=== PATIENT | female | born 1995 | race Caucasian/White ===

== ENCOUNTER 2020-09-26 10:43 | Outpatient (CLI) | payer OTHER, SELFPAY ==
--- NOTE | 2020-09-26 11:17 | ECG_ITS ---
Measurements Intervals [place] Rate: 59 P: 69 MA: 177 QRS: 57 QRSD: 82 T: 36 QT: 379 QTc: 376 Interpretive Statements SINUS BRADYCARDIA WITH SINUS ARRHYTHMIA POSSIBLE LEFT ATRIAL ENLARGEMENT INCOMPLETE RIGHT BUNDLE BRANCH BLOCK BORDERLINE ECG Electronically Signed On 09-26-2020 11:51:35 CDT by Barber Butler D.O.
[2020-09-26 11:30] LABS: Basophils Percent Auto 0.3 % (0.2-1.2); Eosinophils Absolute Auto 0.1 K/mm3 (0-0.3); Eosinophils Percent Auto 1.3 % (0-4.4); Hematocrit 44.8 % (37.0-47.0); Hemoglobin 15.1 g/dL (12.0-15.0); Immature Granulocyte Absolute 0.03 K/mm3 (0.00-0.031); Immature Granulocyte Percent A 0.4 % (0-0.5); Lymphocytes Absolute Auto 1.43 K/mm3 (0.9-3.2); Lymphocytes Percent Auto 18.7 % (18.3-44.2); Mean Corpuscular HGB Conc 33.7 g/dl (32-36); Mean Corpuscular Hemoglobin 29.5 pg (26-34); Mean Corpuscular Volume 87.7 fl (80-100); Monocytes Absolute Auto 0.4 K/mm3 (0.1-0.6); Monocytes Percent Auto 5.1 % (2.6-8.5); Neutrophils Absolute Auto 5.7 K/mm3 (1.3-6.7); Neutrophils Percent Auto 74.2 % (45.5-73.1); Platelet Count Result 209 k/mm3 (150-375); Red Blood Count 5.11 M/mm3 (4.2-5.4); Red Cell Distribution Width 12.1 % (11.5-14.5); White Blood Count 7.6 K/mm3 (4.5-10.0)
[2020-09-26 11:42] LABS: Anion Gap 8 mmol/L (8-16); Blood Urea Nitrogen 8 mg/dL (7-17); Calcium 9.6 mg/dL (8.4-10.2); Carbon Dioxide 28 mmol/L (22-30); Chloride 104 mmol/L (98-107); Cholesterol 157 mg/dL (0-200); Estimated Glomerular Filt Rate > 60; Glucose 112 mg/dL (65-105); HDL Direct 45 mg/dL; Sodium 140 mmol/L (137-145); Triglycerides 96 mg/dL (<150)
[2020-09-26 11:53] LABS: LDL Cholesterol Direct 95 mg/dL
== END 2020-09-26 10:44 | disposition home or self-care (01) ==
PROVIDERS: PCP Family Medicine; Visit Provider Nurse Practitioner Family
DX: R42 Dizziness and giddiness (principal); R55 Syncope and collapse; Z13.220 Encounter for screening for lipoid disorders; I45.10 Unspecified right bundle-branch block
CPT/HCPCS: 36415; 80048; 80061; 84443; 85025; 93005

== ENCOUNTER 2020-10-25 16:58 | Outpatient (CLI) | payer OTHER, SELFPAY ==
--- NOTE | ~2020-10-25 | MR_ITS ---
EXAMINATION: MR brain/brain stem wo con EXAM DATE: 10/25/2020 18:11 INDICATION: R42 - Dizziness and giddiness. Seizures. TECHNIQUE: Magnetic resonance imaging (MRI) of the brain/brain stem obtained without contrast. Sagitt al T1, axial diffusion, gradient echo (T2*), T1, T2, FLAIR sequences obtained. Seizure protocol was u tilized including high-resolution coronal images through the hippocampi. Comparison is made to anam leo examination from 01/09/2011. FINDINGS: There are no areas of restricted diffusion to suggest acute infarction. There is no acute hemorrhage seen on the T2*, a hemosiderin sensitive sequence. No intraparenchymal brain mass. The ve ntricles are normal in size. There are no extra-axial collections. Flow voids are seen in the cereb ral arteries on the T2-weighted sequences consistent with their expected patency. The orbits are unr emarkable. Soft tissue is unremarkable. Mild mucoperiosteal thickening. IMPRESSION: 1. Normal brain MRI examination. Reviewed, dictated and finalized at location A.
== END 2020-10-25 16:59 | disposition home or self-care (01) ==
LOC: ANHIMG 17:02
PROVIDERS: PCP Family Medicine; Visit Provider Nurse Practitioner Family
DX: R42 Dizziness and giddiness (principal); R55 Syncope and collapse
CPT/HCPCS: 70551

== ENCOUNTER 2021-12-11 05:04 | Inpatient (IN) | payer OTHER, SELFPAY ==
[2021-12-11] VITALS (160 sets, daily range): BP systolic 88–147; BP diastolic 49–100; PULSE 57–197; RESP 18; TEMP 36.1–36.9; O2SAT 97–100; BMI 25.1
--- NOTE | 2021-12-11 05:34 | LDADM ---
This patient, Meghan Tripp, was admitted to Labor/Delivery/Recovery 103 on 12/11/21 at 05:04. Plans for labor, pain management and were discussed with patient. Patient/family oriented to hospital policies and general routines including ID bracelet, bed and alarms, visiting hours, pain management, procedures, bathroom and other care routines, personal items, smoking policy, room service/diet and guest tray routines, security routines, and visiting hours. Patient/Family are encouraged to report perceived risks to care and to ask questions if they do not understand what they are told or what they should do. See OBIX for further documentation.
[2021-12-11 05:55] LABS: Basophils Percent Auto 0.3 % (0.2-1.2); Eosinophils Absolute Auto 0.1 K/mm3 (0-0.3); Eosinophils Percent Auto 1.3 % (0-4.4); Hematocrit 36.9 % (37.0-47.0); Hemoglobin 12.6 g/dL (12.0-15.0); Immature Granulocyte Absolute 0.04 K/mm3 (0.00-0.031); Immature Granulocyte Percent A 0.5 % (0-0.5); Lymphocytes Absolute Auto 1.94 K/mm3 (0.9-3.2); Lymphocytes Percent Auto 25.2 % (18.3-44.2); Mean Corpuscular HGB Conc 34.1 g/dl (32-36); Mean Corpuscular Hemoglobin 30.2 pg (26-34); Mean Corpuscular Volume 88.5 fl (80-100); Mean Platelet Volume 11.8 fl (7.4-10.4); Monocytes Absolute Auto 0.6 K/mm3 (0.1-0.6); Monocytes Percent Auto 7.4 % (2.6-8.5); Neutrophils Percent Auto 65.3 % (45.5-73.1); Platelet Count Result 159 k/mm3 (150-375); Red Blood Count 4.17 M/mm3 (4.2-5.4); White Blood Count 7.7 K/mm3 (4.5-10.0)
[2021-12-11 06:05] LABS: Alanine Aminotransferase 9 U/L (6-35); Albumin Level 3.5 g/dL (3.5-5.1); Alkaline Phosphatase 294 U/L (38-126); Anion Gap 7 mmol/L (8-16); Aspartate Amino Transferase 17 U/L (14-36); Bilirubin,Total 0.5 mg/dL (0.2-1.3); Blood Urea Nitrogen 3 mg/dL (7-17); Calcium 8.6 mg/dL (8.4-10.2); Carbon Dioxide 19 mmol/L (22-30); Chloride 108 mmol/L (98-107); Estimated CRCL calculation 120 ml/min; Estimated Glomerular Filt Rate > 60; Glucose 87 mg/dL (65-110); Potassium 3.3 mmol/L (3.4-5.0); Sodium 134 mmol/L (137-145)
[2021-12-11] MEDS: LACTATED RINGERS 1,000 ML 125 ML IV CONT ×2 (06:22→10:56)
[2021-12-11] MEDS: OXYTOCIN 30 UNITS/NS 500 ML 30 UNITS/500 ML BAG IV CONT (06:22)
--- NOTE | 2021-12-11 07:42 | WPDANESEPP ---
Anes - Eval Pre Procedure Procedure: labor epidural Date/Time: 12/11/21 07:42 Surgeon: bharti Preop Diagnosis: pain during labor Pre Op Diagnosis: IOL Patient Data Age: 26 Gender: F Height: 1.73 m Weight: 75 kg Last Vital Signs Temp 36.3 C L 12/11/21 06:33 Pulse 74 12/11/21 07:30 BP 129/80 12/11/21 07:30 Pulse Ox 99 12/11/21 07:39 O2 Del Method Room Air 12/11/21 05:34 Allergies Allergy/AdvReac Type Severity Reaction Status Date / Time cocoa Allergy Severe Anaphylactic Verified 12/11/21 05:47 Shock acetaminophen Allergy Numbness Verified 12/11/21 05:47 [From Excedrin Back and Body] aspirin Allergy Numbness Verified 12/11/21 05:47 [From Excedrin Back and Body] calcium carbonate Allergy Numbness Verified 12/11/21 05:47 [From Excedrin Back and Body] Chocolate Allergy Severe Anaphylactic Uncoded 12/05/21 11:09 Shock wood glue Allergy Intermediate swelling Uncoded 12/05/21 11:09 Home Medications Medication Instructions Recorded Confirmed Type albuterol sulfate 90 mcg/actuation 2 puff inhalation Q4H PRN 07/29/19 12/11/21 Rx aerosol inhaler (Ventolin HFA) shortness of breath or wheezing #6.7 grams vitamins-iron fumarate 65 1 tablet PO DAILY 06/30/21 12/11/21 History mg iron-folic acid 1 mg tablet sertraline 50 mg tablet (Zoloft) 50 mg PO DAILY #90 tabs 11/14/21 12/11/21 Rx Laboratory Tests 12/11/21 12/11/21 12/11/21 05:49 05:49 05:49 WBC 7.7 K/mm3 K/mm3 (4.5-10.0) RBC 4.17 M/mm3 L M/mm3 (4.2-5.4) Hgb 12.6 g/dL g/dL (12.0-15.0) Hct 36.9 % L % (37.0-47.0) MCV 88.5 fl fl (80-100) MCH 30.2 pg pg (26-34) MCHC 34.1 g/dl g/dl (32-36) RDW 14.0 % % (11.5-14.5) Plt Count 159 k/mm3 k/mm3 (150-375) MPV 11.8 fl H fl (7.4-10.4) Immature Gran % (Auto) 0.5 % % (0-0.5) Neut % (Auto) 65.3 % % (45.5-73.1) Lymph % (Auto) 25.2 % % (18.3-44.2) [place] % (Auto) 7.4 % % (2.6-8.5) Eos % (Auto) 1.3 % % (0-4.4) Baso % (Auto) 0.3 % % (0.2-1.2) Lymph # (Auto) 1.94 K/mm3 K/mm3 (0.9-3.2) [place] # (Auto) 0.6 K/mm3 K/mm3 (0.1-0.6) Eos # (Auto) 0.1 K/mm3 K/mm3 (0-0.3) Baso # (Auto) 0.0 K/mm3 K/mm3 (0.0-0.1) Abs Immat Gran (auto) 0.04 K/mm3 H K/mm3 (0.00-0.031) Absolute Neuts (auto) 5.0 K/mm3 K/mm3 (1.3-6.7) Absolute Nucleated RBC 0.0 K/mm3 K/mm3 (0.0-0.012) Nucleated RBC % 0.0 % % (0.0-0.2) Sodium Potassium Chloride Carbon Dioxide Anion Gap BUN Creatinine Estim Creat Clear Calc Estimated GFR Glucose Calcium Total Bilirubin AST ALT Alkaline Phosphatase Total Protein Albumin RPR Pending Blood Type B Positive Antibody Screen Pending 12/11/21 05:49 WBC RBC Hgb Hct MCV MCH MCHC RDW Plt Count MPV Immature Gran % (Auto) Neut % (Auto) Lymph % (Auto) [place] % (Auto) Eos % (Auto) Baso % (Auto) Lymph # (Auto) [place] # (Auto) Eos # (Auto) Baso # (Auto) Abs Immat Gran (auto) Absolute Neuts (auto) Absolute Nucleated RBC Nucleated RBC % Sodium 134 mmol/L L mmol/L (137-145) Potassium 3.3 mmol/L L mmol/L (3.4-5.0) Chloride 108 mmol/L H mmol/L (98-107) Carbon Dioxide 19 mmol/L L mmol/L (22-30) Anion Gap 7 mmol/L L mmol/L (8-16) BUN 3 mg/dL L D mg/dL (7-17) Creatinine 0.60 mg/dL L mg/dL (0.7-1.0) Estim Creat Clear Calc 120 ml/min ml/min Estimated GFR > 60 (5
[2021-12-11 10:01] LABS: Glucose Point of Care 92 mg/dl (65-105)
[2021-12-11] MEDS: OXYTOCIN 30 UNITS/NS 500 ML 30 UNITS/500 ML BAG 125 UNITS IV CONT (14:50)
--- NOTE | 2021-12-11 16:11 | P.PCNOB_ITS ---
OB - Delivery Note Procedure Induction method: Per Pitocin Protocol Delivery augmentation: Rupture of Membranes Delivery monitor: External FHT and External Uterine Route of delivery: Episiotomy description: Other Laceration Description: Perineal - 1st Degree Delivery repair: vicryl Specimen: No Quantitative Blood Loss (ml): 300 Anesthesia type: Epidural Disposition: Floor Complications: none Narrative: patient prepped in usual manner for this procedure. Maternal expulsive efforts readily delivered vertex which was followed by the rest of baby without difficulty. Cord clamped and cut and placenta delivered spontaneously. Cervix vagina vulva were inspected with first-degree laceration in noted in the vaginal area. This was approximated using 3-0 Vicryl in a running interlocking manner with good approximation hemostasis noted. Uterus was well contracted with no significant bleeding. At this point procedure was considered terminated with immediate postoperative condition of mother and baby both excellent. [place] Baby Weeks of gestation at delivery: 39 Infant gender: Male Weight (pounds): 7 Weight (ounces): 0 presentation: vertex Placenta delivery description: Spontaneous Cord Vessel Description: 3 Vessels score one minute: 9 score five minutes: 9 AMG Delivery Billing Delivery Delivery: Delivery Charge
--- NOTE | 2021-12-11 16:11 | WPDHPUPDATE1 ---
History and Physical Update Update Date/Time: 12/11/21 16:11 History and Physical has been reviewed, including an updated exam of the patient. There are NO changes in the patient's condition. Risks, benefits, and alternatives have been discussed and questions answered. Patient agrees to proceed with procedure.
--- NOTE | 2021-12-11 16:11 | WPDOBADMIT ---
Obstetrics - Admit Note Admission Note: record reviewed. No pertinent additions to the history and/or any subsequent changes in the physical findings that are not consistent with the expected course of the were found. Additions to the history and/or subsequent changes in the physical findings follow. None.
[2021-12-11 16:29] LABS: Rapid Plasma Reagin Non-Reactive (NonReactive)
--- NOTE | 2021-12-11 17:23 | OBPPTRN ---
Patient transferred to post room #292 via wheelchair. Support person present. Oriented to unit, room, information board, rooming in, admission packet and security measures. Patient verbalizes understanding.
[2021-12-12] MEDS: IBUPROFEN 600 MG TABLET PO (01:48)
[2021-12-12 03:45] VITALS: BP 110/70; PULSE 86; RESP 18; TEMP 36.2; O2SAT 99
[2021-12-12 04:35] LABS: Hematocrit 31.5 % (37.0-47.0); Hemoglobin 10.8 g/dL (12.0-15.0)
[2021-12-12 08:10] VITALS: BP 124/79; PULSE 71; RESP 16; TEMP 36.6; O2SAT 99
[2021-12-12] MEDS: DOCUSATE SODIUM 100 MG CAPSULE PO (09:42)
[2021-12-12] MEDS: MULTIVIT/MIN/PREN/FOL AC/IRON TABLET 1 TAB PO (09:42)
--- NOTE | 2021-12-12 12:04 | PM.OBDSVD ---
DS: Admitting Diagnosis Discharge Date 12/12/2021// Admitting Diagnosis OB - DS: Summary OB Procedures : None OB Procedures Intrapartum: Spontaneous Vag Delivery OB Procedures: : None Time Spent with Patient Time attestation: Total time spent providing and/or coordinating discharge services: DS: Data Data Completed and Pending Labs on day of discharge: Labs from last 24 hours 12/12/21 12/11/21 03:49 05:49 Hgb 10.8 L Hct 31.5 L RPR Non-reactive Discharge Plan Discharge Discharging Clinician: Benedict Chavez Patient Disposition: Home, Self-Care Activity: as tolerated Diet: as tolerated Patient Instructions: Antibiotic Form Stand Alone Forms: General Discharge Information Follow-up/Referrals: Benedict Chavez MD [Physician] - 3 Weeks Discharge Medications: New ibuprofen 600 mg Tablet 600 mg PO Q6H PRN (Reason: Cramping) Qty: 30 0RF Continued vit-iron fum-folic ac 65 mg iron- 1 mg tablet 1 tablet PO DAILY albuterol sulfate [Ventolin HFA] 90 mcg/actuation HFA aerosol inhaler 2 puff INHALATION Q4H PRN (Reason: shortness of breath or wheezing) Qty: 6.7 2RF sertraline [Zoloft] 50 mg tablet 50 mg PO DAILY Qty: 90 0RF Date of admission: 12/11/21 05:04 Primary Care Provider: Ryan Ritter Admitting Provider: Benedict Chavez Attending physician on admission: Benedict Chavez Condition: Stable
--- NOTE | 2021-12-12 12:27 | PC.NURSE ---
[id number] Mother verbalizes she is able to independently latch with appropriate positioning/alignment. She denies any nipple discomfort and is responsively . is currently meeting outcomes for weight, output, jaundice and feeding frequencies of 8-12 times in 24 hours. Mother declines any additional assistance/education at this time. Mother is encouraged to call for assistance if her doesn?t latch or there is discomfort with latching. Mother demonstrated latching to the left breast with cross cradle with infant demonstrating good suck/swallow ratios and mother voiced understanding of visualizing and hearing the swallowing as well. Mother voiced understanding the visual difference between non-nutritive vs rocking motion with good swallowing. When started non-nutritive sucking RN demonstrated detaching from the breast. Mother voiced understanding of information shared and mom and baby guide reviewed for additional resource information. Reported to the primary RN.
[2021-12-12 12:35] VITALS: BP 104/66; PULSE 71; RESP 16; TEMP 36.9; O2SAT 98
[2021-12-13 08:46] VITALS: BP 127/74; PULSE 64; RESP 16; TEMP 37; O2SAT 97
== END 2021-12-12 16:15 | disposition home or self-care (01) | DRG 560 ==
LOC: ANHLDR 05:23 → ANHOB2 17:31
PROVIDERS: Admitting Provider Obstetrics & Gynecology; PCP Family Medicine; Visit Provider Obstetrics & Gynecology
DX: O24.429 Gestational diabetes mellitus in childbirth, unspecified control (principal); O70.0 First degree perineal laceration during delivery; Z3A.39 39 weeks gestation of pregnancy; Z37.0 Single live birth
CPT/HCPCS: 36415; 80053; 82948; 85014; 85018; 85025; 86592; 86850; 86900; 86901; A9270; J2590; J2795; J7120

== ENCOUNTER 2025-04-09 21:57 | Observation (INO) | payer SELFPAY ==
[2025-04-09] VITALS (16 sets, daily range): BP systolic 114–131; BP diastolic 77–103; PULSE 81–116; RESP 18; TEMP 36.8; O2SAT 98–99
--- OUTSIDE RECORDS SUMMARY | 2025-04-09 22:13 | XMS_ITS | Clinical Summary ---
Author Organization [facility] Address [address] [place] [address] Care Team Providers Care City Magistrate Name Role Phone Ryan Ritter MD Primary Care Provider [phone] Allergies No known active allergies Social History Tobacco Use Types Packs/Day Years Used Date Smoking Tobacco: Never Assessed Personal Safety Answer Date Recorded Have you ever been in or are you currently in a harmful physical or emotional relationship or is someone making you feel afraid or unsafe? Yes 12/22/2024 Comments Yes Sex and Gender Information Value Date Recorded Sex Assigned at Not on file Legal Sex Female 9:08 PM [employer] Gender Identity Not on file Sexual Orientation Not on file Obstetrics History Para Term AB IAB SAB Ectopic Multiple Livin g Live Births 1 Date Outcome GA Total Labor Labor/2nd/3rd Weight Sex Type Anes PTL Catherine A1 A5 Name Clin Current Last Filed Vital Signs Vital Sign Reading Time Taken Comments Blood Pressure 116/69 12/22/2024 2:39 PM CDT Pulse 102 12/22/2024 2:39 PM CDT Temperature 36.6 C (97.9 F) 12/22/2024 2:39 PM CDT Respiratory Rate 14 12/22/2024 2:39 PM CDT Oxygen Saturation 97% 12/22/2024 2:39 PM CDT Inhaled Oxygen Concentration - - Weight 56.7 kg (125 lb) 09/14/2024 5:55 PM CDT Height 172.7 cm (5' 8) 09/14/2024 5:55 PM CDT Body Mass Index 19.01 09/14/2024 5:55 PM CDT Plan of Treatment Health Maintenance Due Date Last Done Comments Cervical Cancer Screening 1993 Depression Screening 1993 Hepatitis C Screening 1993 DTaP/Tdap/Td Vaccine (1 - Tdap) 2004 Varicella Vaccines (1 of 2 - 13+ 2-dose series) 2006 Hepatitis B Screening 2011 Regular Well Visit/Exam 18-64 2011 HPV Vaccines (1 - 3-dose SCD M series) 2020 Influenza Vaccine (#1) 2025 Pneumococcal vaccine <65 Aged Out No longer eligible based on patient's age to complete this topic Insurance [facility] [place] [address] IDOR Care Teams City Magistrate Relationship Specialty Start Date End Date Ryan Ritter MD PCP - General 01/25/19
[2025-04-09 23:04] LABS: Hematocrit 37.5 % (37.0-47.0); Hemoglobin 13.1 g/dL (12.0-15.0); Immature Granulocyte Percent A 0.2 % (0-0.5); Lymphocytes Absolute Auto 1.81 K/mm3 (0.9-3.2); Mean Corpuscular HGB Conc 34.9 g/dl (32-36); Mean Corpuscular Hemoglobin 31.6 pg (26-34); Mean Corpuscular Volume 90.4 fl (80-100); Nucleated Red Blood Cells Absolute Auto 0.000 K/mm3 (0.0-0.012); Nucleated Red Blood Cells Perc 0.0 % (0.0-0.2); Platelet Count Result 157 k/mm3 (150-375); Red Blood Count 4.15 M/mm3 (4.2-5.4); White Blood Count 8.2 K/mm3 (4.5-10.0)
--- NOTE | 2025-04-09 23:07 | PC.NURSE ---
Pt is a who presents to L&D for leg numbness over past 2 days. Pt states she has not been able to establish care with an OBGYN this due to insurance issues so she has presented to ER's and Urgent Cares in surrounding area whenever she feels something is off. Pt states she has a hx of all vaginal deliveries, GDM, and epilepsy (last seizure per pt was in 04/2024). Pt denies any drug or alcohol abuse in past or during this . Pt states she has been taking blood sugars at home and that they have been good but is unable to verbalize a number. Pt states her due date is 03/31/2025 based off of the last time of intercourse. Pt states that she has taken Tylenol, and PNV during this . RN clarified acetaminophen allergy. Pt states allergy stems from taking Excedrin Back and Body. Pt denies any vaginal bleeding, LOF, and states she has good movement. Abdomen is soft to palpation. Pt denies feeling contractions but states that her thighs feel achy off and on. Pt states she presented to [facility] on 09/14/2024 and a transvaginal US was performed, pt also states she had an ultrasound from [facility] 04/07/2025 [id number] RN paged Dr. Brandie Zheng5- MD returned page. RN reported pts arrival to unit, complaints, results of US from 09/14/24, contraction pattern and FHTs with moderate variability and accelerations noted as well as suspected gestational age based per pt, laboratory results. Orders received for discharge.
[2025-04-09 23:22] LABS: Alanine Aminotransferase 14 U/L (6-35); Albumin Level 3.6 g/dL (3.5-5.1); Alkaline Phosphatase 216 U/L (38-126); Anion Gap 7 mmol/L (4-12); Aspartate Amino Transferase 25 U/L (14-36); Bilirubin,Total 0.3 mg/dL (0.2-1.3); Blood Urea Nitrogen 8 mg/dL (7-17); Calcium 8.9 mg/dL (8.4-10.2); Carbon Dioxide 20 mmol/L (22-30); Chloride 107 mmol/L (98-107); Estimated Glomerular Filt Rate > 60; Glucose 84 mg/dL (65-110); Potassium 3.6 mmol/L (3.4-5.0); Sodium 134 mmol/L (137-145); Total Protein 6.6 g/dL (6.3-8.2)
[2025-04-09 23:23] LABS: Add Urine Microscopic? YES; Appearance Urine Cloudy (Clear); Glucose Urine UA Negative (Negative); Leukocyte Esterase Ur 1+ LEU/UL (Negative); Need Manual Microscopic Reviewed; Nitrate Urine Negative (Negative); Specific Grav Ur 1.034 (1.001-1.035)
[2025-04-09 23:25] LABS: Cannabinoid Screen Urine Positive (Negative)
[2025-04-09 23:51] LABS: Syphilis IgG/IgM Antibody Non-Reactive (Nonreactive)
[2025-04-09 23:54] LABS: Hepatitis B Surface Antigen Negative (Negative)
[2025-04-10 00:23] LABS: HIV 1/2 Ab P24 Ag Result Negative (Negative)
--- NOTE | 2025-04-12 07:22 | PM.OBTRLD ---
OB - Triage/Final Diagnosis Visit Information Reason for evaluation: threatened labor Comments/Additional reasons for admission: I have assessed the risk for this patient, Meghan Tripp, and determined that she would benefit from observation care. Evaluation Laboratory results: Laboratory Tests 04/09/25 22:41 WBC 8.2 RBC 4.15 L Hgb 13.1 Hct 37.5 MCV 90.4 MCH 31.6 MCHC 34.9 RDW 13.1 Plt Count 157 MPV 12.0 H Immature Gran % (Auto) 0.2 Neut % (Auto) 71.0 Lymph % (Auto) 22.1 [place] % (Auto) 5.5 Eos % (Auto) 1.1 Baso % (Auto) 0.1 L Lymph # (Auto) 1.81 [place] # (Auto) 0.5 Eos # (Auto) 0.1 Baso # (Auto) 0.0 Abs Immat Gran (auto) 0.02 Absolute Neuts (auto) 5.8 Absolute Nucleated RBC 0.000 Nucleated RBC % 0.0 Sodium 134 L Potassium 3.6 Chloride 107 Carbon Dioxide 20 L Anion Gap 7 BUN 8 D Creatinine 0.55 L Estim Creat Clear Calc Not Reportable Estimated GFR > 60 Glucose 84 Calcium 8.9 Total Bilirubin 0.3 AST 25 ALT 14 Alkaline Phosphatase 216 H Total Protein 6.6 Albumin 3.6 Urine Color Yellow Urine Appearance Cloudy H Urine pH 5.5 Ur Specific [place] 1.034 Urine Protein Negative Urine Glucose (UA) Negative Urine Ketones Trace H Ur Blood (Man) Negative Urine Nitrate Negative Urine Bilirubin Negative Urine Urobilinogen 1.0 Add Ur Microanalysis Reviewed Leukocyte Esterase Rfl 1+ H Urine RBC 0-2 Urine WBC 21-50 H Ur Squamous Epith Cells Few Urine Bacteria 3+ H Urine Casts 3-5 Urine Opiates Screen Negative Urine Methadone Screen Negative Ur Barbiturates Screen Negative Ur Phencyclidine Scrn Negative Ur Amphetamine Screen Negative U Benzodiazepines Scrn Negative Urine Cocaine Screen Negative U Cannabinoids Screen Positive A Syphilis IgG/IgM Ab Non-reactive Hep Bs Antigen Negative HIV 1&2 Ab/P24 Ag 4thGn Negative Rubella IgG Antibody 16.8 Blood Type B Positive Antibody Screen Negative
== END 2025-04-09 23:45 | disposition home or self-care (01) ==
PROVIDERS: Admitting Provider Obstetrics & Gynecology; PCP Family Medicine; Visit Provider Obstetrics & Gynecology
DX: O47.1 False labor at or after 37 completed weeks of gestation (principal); Z3A.41 41 weeks gestation of pregnancy
CPT/HCPCS: 36415; 80053; 80307; 81001; 85025; 86593; 86703; 86762; 86850; 86900; 86901; 87086; 87340; G0378; G0379; G0432